=== PATIENT | male | born 1990 | race American Indian/Alaskan Native ===

== ENCOUNTER 2017-06-24 16:27 | Emergency (ER) | payer MEDICAID ==
[2017-06-24 16:37] VITALS: RESP 20; TEMP 98.9
--- NOTE | 2017-06-24 17:42 | ED PDOC ---
Arrival/HPI - General Chief Complaint: Abdominal Pain Time Seen by Provider: 06/24/17 16:33 Historian: Patient - History of Present Illness Narrative History of Present Illness (Text): 06/24/17 17:38 A 27 year old male whose past medical history includes asthma, presents to the emergency department with with a complaint of worsening pain of his right leg. The patient states that several months ago he fell an injured his right leg and it has been hurting since. Today he states that the pain is mainly in his right groin area. The patient also complains of shortness of breath for the past several weeks regardless of activity or rest. He admits to being stressed. The patient notes that he has seen his PMD regarding the shortness of breath, and that his PMD recommended him to take walks. In triage, the patient mentioned that he may be constipated, stating that he has not had a bowel movement in 3 days. He notes that he typically does not go every day. The patient denies fevers, chills, headache, dizziness, chest pain, dyspnea on exertion, cough, abdominal pain, nausea, vomiting, diarrhea, back pain, neck pain, urinary/bowel changes, or any other complaint. Time/Duration: Other (Several Weeks) Symptom Onset: Sudden Symptom Course: Unchanged Activities at Onset: Rest, Light Context: Home Past Medical History - Provider Review Nursing Documentation Reviewed: Yes - Infectious Disease Hx of Infectious Diseases: None - Cardiac Other/Comment: ND - Psychiatric Hx Anxiety: Yes Hx Substance Use: No - Anesthesia Hx Anesthesia: No Hx Anesthesia Reactions: No Hx Malignant Hyperthermia: No Family/Social History - Physician Review Nursing Documentation Reviewed: Yes Family/Social History: No Known Family HX Smoking Status: Never Smoked Hx Alcohol Use: Yes Hx Substance Use: No Allergies/Home Meds Allergies/Adverse Reactions: Allergies not able to name allergies Adverse Reaction (Uncoded 06/24/17 16:39) RASH Home Medications: Home Meds Medication Instructions Recorded Confirmed No Known Home Med 06/24/17 06/24/17 Review of Systems - Review of Systems Constitutional: absent: Fevers, Night Sweats ENT: absent: Sore Throat Respiratory: absent: SOB, Cough Cardiovascular: absent: Chest Pain, NEGRON Gastrointestinal: absent: Abdominal Pain, Stool Changes, Diarrhea, Nausea, Vomiting Genitourinary Male: Dysuria (occasional urinary burning). absent: Urinary Output Changes Musculoskeletal: Other (worsening pain to his right leg). absent: Back Pain, Neck Pain Neurological: absent: Headache, Dizziness Physical Exam Vital Signs Reviewed: Yes Vital Signs Temp Pulse Resp BP Pulse Ox 06/24/17 19:41 60 20 109/55 L 100 06/24/17 16:36 98.9 F 75 20 128/89 98 06/24/17 16:31 98.9 F 73 19 128/89 99 Temperature: Afebrile Blood Pressure: Normal Pulse: Regular Respiratory Rate: Normal Appearance: Positive for: Well-Appearing, Non-Toxic, Comfortable Pain Distress: None Mental Status: Positive for: Alert and Oriented X 3 - Systems Exam Head: Present: Atraumatic, Normocephalic Pupils: Present: PERRL Conjunctiva: Present: Normal Mouth: Present: Moist Mucous Membranes Pharnyx: Present: Normal. No: ERYTHEMA, EXUDATE Neck: Present: Normal Range of Motion Respiratory/Chest: Present: Clear to Auscultation, Good Air Exchange. No: Respiratory Distress, Accessory Muscle Use Cardiovascular: Present: Regular Rate and Rhythm, Normal S1, S2. No: Murmurs Abdomen: Present: Normal Bowel Sounds. No: Tenderness, Distention, Peritoneal Signs Back: Present: Normal Inspection Upper Extremity: Present: Normal Inspection. No: Cyanosis, Edema Lower Extremity: Present: Normal Inspection. No: Edema Neurological: Present: GCS=15, CN II-XII Intact, Speech Normal Skin: Present: Warm, Dry, Normal Color. No: Rashes Psychiatric: Present: Alert, Oriented x 3 Medical Decision Making ED Course and Treatment: 06/24/17 17:48 Impression: A 27 year old male presents to the emergency department with a complaint of worsening pain of his right leg from injury several months ago as well as sob unrelated to activity x several months, admitting to feeling stressed. Plan: -- EKG -- Chest X-ray -- Labs -- Pepcid, Xanax, and Xopenex -- Urinalysis -- Right Lower Extremity US -- Right Femur X-Ray -- Reassess and disposition Progress Notes: EKG: Ordered, reviewed, and independently interpreted the EKG. Rate : 67 BPM Rhythm : NSR Interpretation : Normal interval, normal axis. No ST/T wave changes. 06/24/17 19:01: Lower extremity duplex US is negative for DVTs. 06/24/17 19:51 Patient with noted history of long-standing symptoms; vitals are normal with normal EKG and normal d-dimer and CE and other labs as well as unremarkable chest-xray. There are no acute findings at this time. Unlikely to be cardiopulmonary etiology. 06/24/17 20:00 The patient refused all the ordered meds, including xopenex, pepcid, and xanax. As discussed with patient that it is unlikely to be cardiopulmonary, patient was hesitant to leave, but he still refused to take any meds. He denies any SI or HI or paranoid delusions. No indication for admission at this time. Ok for d/c. - Lab Interpretations Lab Results: 06/24/17 17:30 06/24/17 17:30 Lab Results 06/24/17 18:00: Urine Color Yellow, Urine Appearance Clear, Urine pH 8.0, Ur Specific [place] 1.015, Urine Protein Trace H, Urine Glucose (UA) Negative, Urine Ketones Negative, Urine Blood Negative, Urine Nitrate Negative, Urine Bilirubin Negative, Urine Urobilinogen 1.0 H, Ur Leukocyte Esterase Negative, Urine RBC 0 - 2, Urine WBC 0 - 2, Ur Epithelial Cells 0 - 2, Amorphous Sediment Few 06/24/17 17:45: D-Dimer, Quantitative 0.19 06/24/17 17:30: Sodium 142, Potassium 3.7, Chloride 107, Carbon Dioxide 23, Anion Gap 16, BUN 12, Creatinine 0.8, Est GFR ( Amer) > 60, Est GFR (Non- Af Amer) > 60, Random Glucose 99, Calcium 9.4, Magnesium 2.1, Total Bilirubin 0.4, AST 27, ALT 24, Alkaline Phosphatase 65, Lactate Dehydrogenase 324 L, Total Creatine Kinase 174, Troponin I < 0.01, Total Protein 7.5, Albumin 4.1, Globulin 3.4, Albumin/Globulin Ratio 1.2, Lipase 84 06/24/17 17:30: WBC 5.1, RBC 5.12, Hgb 14.2, Hct 42.2, MCV 82.4, MCH 27.7, MCHC 33.6, RDW 13.9, Plt Count 318, MPV 9.7, Gran % 48.8 L, Lymph % (Auto) 33.9, [place] % (Auto) 11.0 H, Eos % (Auto) 6.1 H, Baso % (Auto) 0.2, Gran # 2.50, Lymph # 1.7, [place] # 0.6, Eos # 0.3, Baso # 0.01 I have reviewed the lab results: Yes - RAD Interpretation Radiology Orders: 06/24/17 17:01 CHEST TWO VIEWS (PA/LAT) [RAD] Stat DUPLEX LOWER EXTRM VEIN RIGHT [US] Stat 06/24/17 17:02 Femur Right [FEMUR MIN 2 VIEWS RT] [RAD] Stat - EKG Interpretation Interpreted by ED Physician: Yes Type: 12 lead EKG - Medication Orders Current Medication Orders: Discontinued Medications Alprazolam (Xanax) 0.25 mg PO STAT STA PRN Reason: Protocol Stop: 06/24/17 17:03 Last Admin: 06/24/17 18:01 Dose: Not Given Non-Admin Reason: Patient Refused Famotidine (Pepcid) 20 mg IVP STAT STA Stop: 06/24/17 17:03 Last Admin: 06/24/17 18:01 Dose: Not Given Non-Admin Reason: Patient Refused Levalbuterol HCl (Xopenex) 1.25 mg IH STAT STA Stop: 06/24/17 17:03 Last Admin: 06/24/17 18:01 Dose: Not Given Non-Admin Reason: Patient Refused - Scribe Statement The provider has reviewed the documentation as recorded by the Scribe Maggy García Provider Scribe Attestation: All medical record entries made by the Scribe were at my direction and personally dictated by me. I have reviewed the chart and agree that the record accurately reflects my personal performance of the history, physical exam, medical decision making, and the department course for this patient. I have also personally directed, reviewed, and agree with the discharge instructions and disposition. Disposition/Present on Arrival - Present on Arrival Any Indicators Present on Arrival: No History of DVT/PE: No History of Uncontrolled Diabetes: No Urinary Catheter: No History of Decub. Ulcer: No History Surgical Site Infection Following: None - Disposition Have Diagnosis and Disposition been Completed?: Yes Diagnosis: Dyspnea, Right leg pain Disposition: HOME/ ROUTINE Disposition Time: 20:10 Patient Plan: Discharge Condition: GOOD Additional Instructions: Follow up with your primary care doctor. You may take tylenol or advil for the leg pain and otherwise recommend follow up with your primarty care doctor. Return to the emergency department if any new concerning symptoms. Referrals: Juan Carlos Beth MD [Medical Doctor] - Follow up with primary Forms: [employer] ([place])
[2017-06-24 17:55] LABS: BASO # 0.01 K/mm3 (0.0-2.0); BASO % 0.2 % (0.0-3.0); EOS # 0.3 (0.0-0.7); EOS % 6.1 % (1.5-5.0); GRAN # 2.5 (1.4-6.5); GRAN % 48.8 % (50.0-68.0); HEMATOCRIT 42.2 % (42.0-52.0); LYMPH # 1.7 (1.2-3.4); LYMPH % 33.9 % (22.0-35.0); MEAN CELL VOLUME 82.4 fl (80.0-105.0); MEAN CORPUSCULAR HEMOGLOBIN 27.7 pg (25.0-35.0); MEAN CORPUSCULAR HGB CONC 33.6 g/dl (31.0-37.0); MEAN PLATELET VOLUME 9.7 fl (7.0-11.0); MONO # 0.6 (0.1-0.6); RED CELL DISTRIBUTION WIDTH 13.9 % (11.5-14.5); WHITE BLOOD COUNT 5.1 10^3/ul (4.5-11.0)
[2017-06-24] MEDS: Levalbuterol 1.25 MG/3 ML Inhal Soln UD IH STA ×2 (17:56→18:01)
[2017-06-24 18:09] LABS: ALB/GLOB RATIO 1.2 (1.1-1.8); ALKALINE PHOSPHATASE 65 U/L (38-126); ALT/SGPT 24 U/L (7-56); AST/SGOT 27 U/L (17-59); BILIRUBIN,TOTAL 0.4 mg/dL (0.2-1.3); BLOOD UREA NITROGEN 12 mg/dL (7-21); CALCIUM 9.4 mg/dL (8.4-10.5); CARBON DIOXIDE 23 mmol/L (21-33); CHLORIDE 107 mmol/L (98-107); GFR AFRICAN-AMERICAN > 60; GLUCOSE,RANDOM 99 mg/dL (70-110); LIPASE 84 U/L (23-300); MAGNESIUM 2.1 mg/dL (1.7-2.2); POTASSIUM 3.7 mmol/L (3.6-5.0); SODIUM 142 mmol/L (132-148); TOTAL PROTEIN 7.5 g/dL (5.8-8.3)
[2017-06-24 18:26] LABS: TROPONIN I < 0.01 ng/mL
[2017-06-24 18:48] LABS: URINE BILIRUBIN NEGATIVE (NEGATIVE); URINE BLOOD NEGATIVE (NEGATIVE); URINE GLUCOSE (UA) NEGATIVE (NEGATIVE); URINE KETONE NEGATIVE (NEGATIVE); URINE LEUKOCYTE ESTERASE NEGATIVE Leu/uL (NEGATIVE); URINE PROTEIN TRACE mg/dL (<30 mg/dL)
[2017-06-24 18:58] LABS: URINE APPEARANCE CLEAR (CLEAR); URINE COLOR YELLOW (YELLOW)
[2017-06-24 18:59] LABS: URINE AMORPHOUS SEDIMENT FEW; URINE EPITHELIAL CELLS 0 - 2 /hpf (0-5); URINE RBC 0 - 2 /hpf (0-2); URINE WBC 0 - 2 /hpf (0-6)
[2017-06-24 19:42] VITALS: BP 109/55; PULSE 60; O2SAT 100
--- NOTE | 2017-06-25 08:40 | CARD ---
APPROVED REPORT EKG Measurement Heart [id number] <Conclusion> Normal sinus rhythm Normal ECG
--- NOTE | 2017-06-25 09:59 | RAD ---
HISTORY: sob COMPARISON: No prior. TECHNIQUE: Chest PA and lateral FINDINGS: LUNGS: No active pulmonary disease. PLEURA: No significant pleural effusion identified. No pneumothorax apparent. CARDIOVASCULAR: Normal. OSSEOUS STRUCTURES: No significant abnormalities. VISUALIZED UPPER ABDOMEN: Normal. OTHER FINDINGS: None. IMPRESSION: No active disease.
--- NOTE | 2017-06-25 09:59 | RAD ---
PROCEDURE: Right Femur Radiographs. HISTORY: R leg / groin pain COMPARISON: None. TECHNIQUE: AP and Lateral Radiographs of the right femur. FINDINGS: FEMUR: Normal. No fracture. SOFT TISSUES: Normal. OTHER FINDINGS: None. IMPRESSION: Unremarkable radiographs of the right femur.
--- NOTE | 2017-06-25 10:08 | US ---
PROCEDURE: Right lower extremity venous US HISTORY: Leg pain and swelling. Evaluate for DVT. PHYSICIAN(S): Damian Alegria M.D. TECHNIQUE: Duplex sonography and color-flow Doppler with graded compression were used to evaluate the deep venous system of the right lower extremity. FINDINGS: The visualized deep venous system of the right lower extremity is sonographically normal and compressible. Normal waveforms and augmentation are seen. There is no sonographic evidence for deep venous thrombosis in the visualized segments of the right lower extremity. IMPRESSION: 1. No sonographic evidence for deep venous thrombosis in the visualized segments of the right lower extremity.
== END 2017-06-24 20:00 | disposition home or self-care (01) ==
LOC: ED 16:27
DX: R06.00 Dyspnea, unspecified (principal); M79.661 Pain in right lower leg